=== PATIENT | female | born 1985 | race American Indian/Alaskan Native ===

== ENCOUNTER 2020-11-08 02:23 | Emergency (ER) | payer OTHER, MEDICARE ==
[2020-11-08] MEDS ORDERED: AMOXICILLIN/K CLAV 875/125MG TAB PO ONE (02:57)
[2020-11-08] MEDS ORDERED: IBUPROFEN 600 MG TAB PO ONE (02:57)
[2020-11-08] MEDS ORDERED: ONDANSETRON 4 MG ODT TAB PO ONE (02:57)
[2020-11-08] MEDS ORDERED: HYDROcodone/ACETAMINOPHEN 7.5-325MG TAB PO ONE (02:57)
[2020-11-08] MEDS ORDERED: predniSONE 20 MG TAB PO ONE (02:57)
[2020-11-08 03:02] VITALS: BP 148/90
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
== END 2020-11-08 05:05 | disposition home or self-care (01) ==
LOC: ED 02:23
DX: K05.10 Chronic gingivitis, plaque induced (principal); K04.7 Periapical abscess without sinus; F17.200 Nicotine dependence, unspecified, uncomplicated; Z79.899 Other long term (current) drug therapy
CPT/HCPCS: 99282; J7512; Q0162

== ENCOUNTER 2021-04-18 07:49 | Emergency (ER) | payer MEDICARE, OTHER ==
[2021-04-18] MEDS ORDERED: FAMOTIDINE 20 MG/2 ML INJ IV ONE (08:10)
[2021-04-18] MEDS ORDERED: DICYCLOMINE 20 MG TAB PO ONE (08:10)
[2021-04-18] MEDS ORDERED: SODIUM CHLORIDE 0.9% 1000 ML 1,000 ML IV ONE (08:10)
[2021-04-18] MEDS ORDERED: MORPHINE 4 MG/1 ML INJ IV ONE (08:10)
[2021-04-18 08:37] LABS: Basophils # (Auto) 0.1 K/mm3 (0.0-0.1); Basophils % (Auto) 1.1 % (0.0-1.8); Eosinophils % (Auto) 0.7 % (0.0-4.3); Hematocrit 38.3 % (30.3-42.9); Hemoglobin 12.3 gm/dl (10.1-14.3); Lymphocytes # (Auto) 2.2 K/mm3 (1.2-5.4); Lymphocytes % (Auto) 41.9 % (13.4-35.0); Mean Corpuscular HGB Conc 32 % (30-34); Mean Corpuscular Volume 76 fl (79-97); Monocytes # (Auto) 0.4 K/mm3 (0.0-0.8); Monocytes % (Auto) 7.4 % (0.0-7.3); Platelet Count 309 K/mm3 (140-440); Red Blood Count 5.01 M/mm3 (3.65-5.03); Red Cell Distribution Width 17.9 % (13.2-15.2)
[2021-04-18 08:56] LABS: Alanine Aminotransferase 11 units/L (7-56); Albumin 3.9 g/dL (3.9-5); BUN/Creatinine Ratio 11; Blood Urea Nitrogen 9 mg/dL (7-17); Calcium 8.7 mg/dL (8.4-10.2); Hemolysis Index 152
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
[2021-04-18 09:04] LABS: INR 0.96 (0.87-1.13)
--- NOTE | 2021-04-18 10:13 | XRay Report ---
CHEST 2 VIEWS INDICATION: Chest Pain. COMPARISON: None. FINDINGS: Support devices: None. Heart: Within normal limits. Lungs/Pleura: No acute air space or interstitial disease. No significant pleural effusion. IMPRESSION: No acute findings. Signer Name: Ethan Oakes MD Signed: 04/18/2021 10:08 AM Workstation Name: [id number]
[2021-04-18 11:38] VITALS: BP 111/78
--- NOTE | 2021-04-19 11:37 | Electrocardiograph Report ---
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
--- NOTE | 2021-04-19 11:39 | Electrocardiograph Report ---
[facility] Test Date: 2021-04-18 Test Time: 11:42:10 Pat Name: FRED DYER Department: Room: Gender: F Director Erp: VANESSA : 1985 Requested By: SUMANTH YEPEZ Order Number: [id number] Reading MD: Ken Solomon Measurements Intervals [place] Rate: 61 P: 31 WV: 165 QRS: 5 QRSD: 85 T: 30 QT: 465 QTc: 470 Interpretive Statements Sinus rhythm Compared to ECG 04/18/2021 07:49:22 No significant changes Electronically Signed On 04-19-2021 11:39:09 EST by Ken Solomon
== END 2021-04-18 12:01 | disposition home or self-care (01) ==
LOC: ED 07:49
DX: M94.0 Chondrocostal junction syndrome [Tietze] (principal); R07.9 Chest pain, unspecified; K21.9 Gastro-esophageal reflux disease without esophagitis
CPT/HCPCS: 36415; 71046; 80053; 83690; 84484; 84703; 85025; 85610; 85730; 93005; 96361; 96374; 96375; 99284; J2270; J3490; J7030; Q0162

== ENCOUNTER 2021-06-30 10:01 | Emergency (ER) | payer OTHER ==
[2021-06-30 10:14] VITALS: BP 118/71
== END 2021-07-01 08:58 | disposition left against medical advice (07) ==
LOC: ED 10:01
DX: R06.02 Shortness of breath (principal); Z53.21 Procedure and treatment not carried out due to patient leaving prior to being seen by health care provider

== ENCOUNTER 2022-01-13 11:51 | Outpatient (CLI) | payer OTHER ==
[2022-01-13 12:19] VITALS: BP 120/79
[2022-01-13 13:58] LABS: Hematocrit 37.7 % (30.3-42.9); Hemoglobin 12.1 gm/dl (10.1-14.3); Mean Corpuscular HGB Conc 32 % (30-34); Mean Corpuscular Volume 84 fl (79-97); Platelet Count 144 K/mm3 (140-440); Red Cell Distribution Width 13.2 % (13.2-15.2)
[2022-01-13] MEDS ORDERED: LACTATED RINGERS 500 ML IV ONE (14:00)
[2022-01-13 14:24] LABS: Alanine Aminotransferase 13 units/L (7-56); Albumin 3.3 g/dL (3.9-5); Blood Urea Nitrogen 6 mg/dL (7-17); Calcium 8.8 mg/dL (8.4-10.2); Hemolysis Index 0
[2022-01-13 14:26] LABS: BUN/Creatinine Ratio 12
--- NOTE | 2022-01-13 15:58 | Ultrasound Report ---
ULTRASOUND BIOPHYSICAL PROFILE INDICATION: CRAMPS ON LT SIDE, ELEVATED FLD - R/O ABRUPTION. COMPARISON: None available. FINDINGS: breathing movement = 2 Gross body movement = 2 tone = 2 Qualitative amniotic fluid volume = 2 Total biophysical score = 8/8 Amniotic fluid index is 14.7 cm. Presentation is Cephalic. heart rate is 135-143 beats per minute. There is a grade 2 anterior placenta. IMPRESSION: 1. biophysical profile = 12/20 2. Amniotic fluid index is normal. 3. No placental abnormalities are seen. Signer Name: Simon Ames MD Signed: 01/13/2022 3:54 PM Workstation Name: [id number]
--- NOTE | 2022-01-13 16:02 | Ultrasound Report ---
ULTRASOUND RENAL INDICATION / CLINICAL INFORMATION: CRAMPING ON LT SIDE. COMPARISON: None available. FINDINGS: RIGHT KIDNEY: Length = 10.2 cm. - Echogenicity: Normal. - Parenchymal Thickness: Normal. - Hydronephrosis: None. - Cyst / Mass: None. - Stones: None seen. LEFT KIDNEY: Length = 10.9 cm. - Echogenicity: Normal. - Parenchymal Thickness: Normal. - Hydronephrosis: None. - Cyst / Mass: None. - Stones: None seen. URINARY BLADDER: No significant abnormality. FREE FLUID: None. ADDITIONAL FINDINGS: None. IMPRESSION: 1. No significant abnormality. Signer Name: Miki Givens MD Signed: 01/13/2022 3:57 PM Workstation Name: [id number]
[2022-01-13 17:28] LABS: Bacteria,Urine 3+ /HPF (Negative); Mucus,Urine FEW /HPF
[2022-01-13 17:30] LABS: Color,Urine Straw (Yellow)
--- NOTE | 2022-01-14 07:48 | Ultrasound Report ---
ULTRASOUND BIOPHYSICAL PROFILE INDICATION: CRAMPS ON LT SIDE, ELEVATED AMNIOTIC FLD - BPP AJAY. COMPARISON: None available. FINDINGS: heart rate is 143 beats per minute. breathing movement = 2 Gross body movement = 2 tone = 2 Qualitative amniotic fluid volume = 2 IMPRESSION: biophysical profile = 12/20 Signer Name: Max Donaldson Jr, MD Signed: 01/14/2022 7:43 AM Workstation Name: [id number]
== END 2022-01-13 18:37 | disposition home or self-care (01) ==
LOC: TRG 11:51 → APU 11:54 → TRG 18:37
PROVIDERS: ATTEND Obstetrics & Gynecology
DX: O09.893 Supervision of other high risk pregnancies, third trimester (principal); O26.893 Other specified pregnancy related conditions, third trimester; R10.9 Unspecified abdominal pain; R06.02 Shortness of breath; Z3A.34 34 weeks gestation of pregnancy
CPT/HCPCS: 36415; 76770; 76815; 76819; 80053; 81001; 85027